=== PATIENT | female | born 1990 | race Caucasian/White ===

== ENCOUNTER 2017-02-21 05:59 | Emergency (ER) | payer OTHER ==
--- NOTE | 2017-02-27 10:35 | ER ---
ADMIT: 02/21/2017 RM/LOC: ER [facility] MR#: [id number] [id number] CHELA SANTILLAN [address] [place] [address] Emergency Room Report SEX: F AGE: 26 : 1990 DATE: 02/21/2017 ADDENDUM: A 26-year-old white female coming with pelvic pain, I refer you to Dr. Toledo's T-sheet. Essentially, CBC, chemistry, are negative. Urine is contaminated with greater than; it is at 6. We are not going to treat that. Lipase is negative. Ultrasound was discussed with the radiologist, it is negative. Essentially, she has abdominal pain in lower pelvis, unknown etiology. She was given Toradol, fluid, and she is much better. I am going to discharge her home. Follow up with Dr. Oliver. CONDITION ON DISCHARGE: Improved. Ang Beebe MD/ katherine JOB #: [id number] CC: Wero Toledo MD, Attending Physician Morro Oliver MD, Family Physician
== END 2017-02-21 08:20 | disposition home or self-care (01) ==
LOC: ER 05:59
DX: R10.2 Pelvic and perineal pain (principal)